=== PATIENT | female | born 1940 | race Caucasian/White ===

== ENCOUNTER 2017-10-18 12:22 | Outpatient (CLI) | payer MEDICARE ==
[2017-10-18 16:20] LABS: Bilirubin Negative (Negative); Blood, Urine Negative (Negative); Clarity CLEAR (Clear); Glucose, Urine (Dipstick) Negative (Negative); Leukocyte Small (Negative); Nitrite Negative (Negative); Protein, Urine (Dipstick) Negative (Neg-Trace); Specific Gravity, Urine 1.006 (1.002-1.036); Urobilinogen 0.2 mg/dL (0.2-1.0)
[2017-10-18 16:24] LABS: Bacteria/HPF None Seen HPF (None Seen); Hyaline Casts/LPF 0-3 HYALINE CAST LPF (0-3 Hyaline); Pathc Cast-AUWi Flag 0.14 (0-2.49); RBC/HPF 0-3 HPF (0-3); Squamous Epithelial None Seen HPF (0-3); WBC/HPF 0-3 HPF (0-3)
== END 2017-10-18 12:23 | disposition home or self-care (01) ==
LOC: LABBT 12:22
PROVIDERS: ATTEND Orthopaedic Surgery
DX: Z01.818 Encounter for other preprocedural examination (principal); M17.11 Unilateral primary osteoarthritis, right knee
CPT/HCPCS: 81001; 87081; 93005; 93010

== ENCOUNTER 2017-10-22 11:15 | Outpatient (CLI) | payer MEDICARE ==
[2017-10-22 12:06] LABS: #Eosinphils 0.1 thou/uL (0.0-0.7); #Lymphocytes 1.5 thou/uL (1.20-3.40); #Monocytes 0.4 thou/uL (0.11-0.59); #Neutrophils 3.2 thou/uL (1.40-6.50); %Basophils 0.7 % (0.0-1.0); %Eosinophils 1.8 % (0.0-10.0); %Lymphocytes 28.6 % (21.0-51.0); %Monocytes 7.8 % (0.0-10.0); %Neutrophils 61.1 % (42.0-75.0); Hemoglobin 12.5 g/dL (12.0-16.0); Mean Corpuscular HGB CONC 33.7 g/dL (32.0-36.0); Mean Corpuscular Hemoglobin 30.8 pg (27.0-31.0); Mean Corpuscular Volume 91.4 fL (78.0-98.0); Mean Platelet Volume 7.6 fL (7.4-10.4); Platelet Count 299 thou/uL (130-400); RBC Distribution Width 11.3 % (11.5-14.5); Red Blood Cell (RBC) Count 4.07 mill/uL (4.20-5.40); White Blood Cell (WBC) Count 5.2 thou/uL (4.8-10.8)
[2017-10-22 12:13] LABS: Prothrombin Time 13.1 SEC (12.0-14.7)
[2017-10-22 12:45] LABS: Anion Gap 12 mmol/L (10-20); BUN (Urea Nitrogen) 15 mg/dL (9.8-20.1); Calc. Creatinine Clearance 0 mL/min (70-130); Calcium 9.3 mg/dL (7.8-10.44); Carbon Dioxide 24 mmol/L (23-31); Chloride 99 mmol/L (98-107); Estimated GFR-MDRD 75; Glucose 102 mg/dL (83-110); Potassium 4.2 mmol/L (3.5-5.1); Sodium 131 mmol/L (136-145)
== END 2017-10-22 11:16 | disposition home or self-care (01) ==
LOC: LABBT 11:15
PROVIDERS: ATTEND Orthopaedic Surgery
DX: Z01.812 Encounter for preprocedural laboratory examination (principal); M17.11 Unilateral primary osteoarthritis, right knee
CPT/HCPCS: 80048; 85025; 85610; 86850; 86900; 86901

== ENCOUNTER 2017-10-29 07:02 | Inpatient (IN) | payer MEDICARE ==
[2017-10-18 12:30] VITALS: BMI 22.6
[2017-10-29] MEDS ORDERED: CEFAZOLIN/Water 2 GM/20 ML SYRINGE ONE (07:19)
[2017-10-29] MEDS ORDERED: Sodium Chloride 0.9% 100 ML ONE (07:19)
[2017-10-29] MEDS ORDERED: Fentanyl 100 MCG/2 ML VIAL ONE ×2 (07:43→11:33)
[2017-10-29] MEDS ORDERED: Midazolam HCl 2 mg/2 ml Vial ONE (07:43)
[2017-10-29] MEDS ORDERED: Bupivacaine PF 0.5% 30 ML VIAL ONE (09:12)
[2017-10-29] MEDS ORDERED: Promethazine HCl 25 MG/ML VIAL IM PRN ×2 (09:31→10:12)
[2017-10-29] MEDS ORDERED: Ondansetron HCl/PF 4 MG/2 ML Vial IVP PRN ×2 (09:31→10:12)
[2017-10-29] MEDS ORDERED: Zolpidem Tartrate 5 MG TAB PO PRN ×2 (09:31→11:13)
[2017-10-29] MEDS ORDERED: Ropivacaine HCl/PF 250 ML in Premix Bag 1 BAG NERVE BLCK SCH (09:31)
[2017-10-29] MEDS ORDERED: HYDROcodone/Acetaminophen 7.5/325 mg Tablet PO PRN ×2 (09:32→09:33)
[2017-10-29] MEDS ORDERED: Promethazine HCl 25 MG/ML VIAL SLOW IVP PRN (10:12)
[2017-10-29] MEDS ORDERED: diphenhydrAMINE 25 MG CAP PO PRN (11:13)
[2017-10-29] MEDS ORDERED: HYDROcodone/Acetaminophen 10/325 mg Tablet PO PRN ×2 (11:13)
[2017-10-29] MEDS ORDERED: Tranexamic Acid 1,000 MG in Sodium Chloride 0.9% 100 ML IVPB SCH (11:15)
--- NOTE | 2017-10-29 11:34 | OP ---
DATE OF PROCEDURE: 10/29/2017 PREOPERATIVE DIAGNOSIS: Right knee osteoarthrosis. POSTOPERATIVE DIAGNOSIS: Right knee osteoarthrosis. PROCEDURE PERFORMED: Right total knee replacement using [place] pinless navigation. SURGEON: Mike Issa M.D. DAIRY ASSOCIATE: Luis Brown PA-C. BLOOD LOSS: Minimal. COMPLICATIONS: None. ANESTHETIC: The patient did have general anesthetic as well as preoperative blocks. IMPLANTS: Our implants that were placed onto the right knee is a [place] [employer] total knee system , the femur was a size 3 cruciate retaining femur. We used a size 3 universal tibial baseplate. We used a 3 x 9 mm CS X3 tibial bearing and a symmetric 27 x 8 X3 patella. DISPOSITION: She did go to recovery room in stable condition. INDICATIONS: A very active 77-year-old female who has finally decided to go and get her knee replace d after failing nonoperative treatment that she has been going with for years. PROCEDURE IN DETAIL: After all appropriate consent forms were explained and signed, the patient was t aken back to the Operating Room and at this time was given general anesthetic. Once the level of anes thesia was appropriate, a well-padded tourniquet was placed on the right leg and the leg was then pre pped and draped in standard surgical fashion. The limb was exsanguinated and tourniquet taken up to 3 00 mmHg. Midline incision was made with a 10 blade down through the skin and subcutaneous tissue. Bov ie electrocautery was used to coagulate any brisk venous bleeding. A new blade was used to make a med ial parapatellar arthrotomy. Small subperiosteal release was performed medially and excess fat pad wa s removed. The knee was flexed up to gain access to the femur. The femur was navigated and distal fem oral resection was made. Epicondylar access was used to align our sizing jig and this was pinned in p lace. We sized our femur to be a [place] total knee system, size 3, cruciate retaining femur, 4:1 cut ting block was applied and pinned. Anterior and posterior chamfer cuts were then made. We navigated o ut our proximal tibia and made our proximal tibial resection. Spreaders were used to remove any poste rior osteophytes off the back of the femur as well as remaining meniscal tissue. A long alignment alva was then used to achieve correct rotation of our tibial baseplate and a size 3 Phenix tibia basep late was chosen. This was pinned in place. We trialed the polyethylene and a 3 x 9 mm CS X3 tibial be aring polyethylene gave us full extension and good stability throughout range of motion. Two towel cl ips and a saw were used to cut our patella. Three lug nuts were drilled and a symmetric 27 x 8 X3 pat phillip was trialed which sat nicely in the trochlear groove. We then drilled our femur and punched our tibia. All components were removed. The knee was thoroughly irrigated and dried. Cement was mixed int o the cement gun on the back table. Components were then placed. The knee was held out in full extens ion until the cement had dried. All excess bone cement was removed. Multiple #2 Vicryl stitches as w ell as a Quill was used to close our extensor mechanism. 0 Quill followed by a running Monoderm was t hen used to close the skin. Surgicel glue was then used on the skin. Once this had dried, soft tissue dressing was applied to the limb, tourniquet was let down, and the toes pinked up nicely. The patie nt was then awakened and taken to the Recovery Room in stable condition. All counts were correct at t he end of the case. The patient did receive preoperative IV antibiotics. The patient was injected wi th Exparel for postoperative pain relief.
[2017-10-29] MEDS: Sodium Chloride 0.9% 1,000 ML IV SCH ×2 (12:01→12:33)
[2017-10-29] MEDS: Ketorolac Tromethamine 30 MG/ML VIAL IVP SCH ×3 (12:32→23:46)
[2017-10-29] MEDS ORDERED: Lidocaine 1% PF 5 ML VIAL ONE (12:59)
[2017-10-29] MEDS ORDERED: Ondansetron HCl/PF 4 MG/2 ML Vial ONE (12:59)
[2017-10-29] MEDS ORDERED: PROPOFOL 200 MG/20 ML VIAL ONE (12:59)
[2017-10-29] MEDS: CEFAZOLIN/Water 2 GM/20 ML SYRINGE SLOW IVP SCH ×2 (15:55→23:47)
[2017-10-29] MEDS ORDERED: Vancomycin HCl 1 GM in Premix Bag 1 BAG IVPB SCH (20:00)
[2017-10-29] MEDS: Aspirin 81 mg Enteric Coated Tablet PO SCH (20:32)
[2017-10-29] MEDS: Atorvastatin Calcium 10 MG TAB PO SCH (20:32)
[2017-10-29] MEDS: Ferrous Gluconate 324 MG TAB PO SCH (20:32)
[2017-10-29] MEDS: Senokot S 8.6-50 MG TAB PO SCH (20:32)
[2017-10-29] MEDS: Zolpidem Tartrate 5 MG TAB PO SCH (20:33)
[2017-10-30 05:15] LABS: Hemoglobin 11.6 g/dL (12.0-16.0); Mean Corpuscular HGB CONC 34.6 g/dL (32.0-36.0); Mean Corpuscular Hemoglobin 31.3 pg (27.0-31.0); Mean Corpuscular Volume 90.3 fL (78.0-98.0); Mean Platelet Volume 7.2 fL (7.4-10.4); Platelet Count 253 thou/uL (130-400); RBC Distribution Width 11.3 % (11.5-14.5); White Blood Cell (WBC) Count 6.3 thou/uL (4.8-10.8)
[2017-10-30] MEDS: Levothyroxine Sodium 100 MCG TAB PO SCH (06:03)
[2017-10-30] MEDS: Ketorolac Tromethamine 30 MG/ML VIAL IVP SCH ×4 (06:03→23:55)
[2017-10-30] MEDS: Sodium Chloride 0.9% 1,000 ML IV SCH ×2 (06:06→18:46)
[2017-10-30] MEDS: Ondansetron HCl/PF 4 MG/2 ML Vial IVP PRN ×3 (07:14→18:08)
[2017-10-30] MEDS: Lactinex Tablet PO SCH (08:47)
[2017-10-30] MEDS: Potassium Chloride 10 MEQ TAB PO SCH (08:48)
[2017-10-30] MEDS: Amlodipine 5 MG TAB PO SCH (08:49)
[2017-10-30] MEDS: Aspirin 81 mg Enteric Coated Tablet PO SCH ×2 (08:49→21:51)
[2017-10-30] MEDS: Senokot S 8.6-50 MG TAB PO SCH ×2 (08:52→21:52)
[2017-10-30] MEDS: Multivitamin W/ Minerals 1 TAB PO SCH (08:52)
[2017-10-30] MEDS: Ferrous Gluconate 324 MG TAB PO SCH ×2 (08:52→21:52)
[2017-10-30] MEDS: Acetaminophen 325 MG TAB PO SCH ×2 (18:47→23:54)
--- NOTE | 2017-10-30 21:00 | CON-2 ---
DATE OF CONSULTATION: 10/30/2017 ATTENDING PHYSICIAN: Hayden Huffman MD REASON FOR CONSULTATION: Medical management. PRIMARY CARE PHYSICIAN: Marya Shah MD HISTORY OF PRESENT ILLNESS: Ms. Chloe Bernal is a pleasant 77-year-old female, who underwent a rig ht total knee replacement yesterday, 10/29/2017, for which we were consulted for medical management. She currently complains of nausea and vomiting and has been unable to tolerate solids today. She st ates that Phenergan suppositories helped. She endorses decreased p.o. intake since her surgery, able to tolerate Sprite and Jell-O. She denies diarrhea, shortness of breath, or chest pain. PAST MEDICAL HISTORY: 1. Hypertension. 2. Acid reflux. 3. Hypothyroidism. 4. Insomnia. 5. Anxiety. 6. Hyperlipidemia. 7. Iron deficient anemia PAST SURGICAL HISTORY: 1. Carpal tunnel surgery. 2. Hysterectomy. 3. Parathyroidectomy. FAMILY HISTORY: Noncontributory. SOCIAL HISTORY: Denies smoking. Endorses occasional alcohol use once a week. Denies drug use. PHYSICAL EXAMINATION: VITAL SIGNS: Temperature 99, pulse 82, respiratory rate 16, O2 sat 98% on room air, and blood pressu re 146/72. GENERAL: No apparent distress, alert and oriented x3. CARDIOVASCULAR: Regular rate and rhythm. No murmurs, rubs, or gallops. RESPIRATORY: Clear to auscultation bilaterally. No wheezing, rhonchi, or rales. EXTREMITIES: No edema. Right knee midline. Incision that is clean, dry, and intact. No rashes or lesions. ABDOMEN: Soft, nondistended, nontender to palpation. Normal bowel sounds. LABORATORY DATA: CBC 6.3, 11.6, 33.4, 253. ASSESSMENT AND PLAN: This is a 77-year-old female with a past medical history of hypertension and ac id reflux status post total right knee replacement postop day #1. Family Medicine residents consulte d for medical management. 1. Right total knee replacement. We will defer to primary team for management. 2. Nausea, vomiting likely associated with lack of p.o. intake and taking pain medications on an emp ty stomach. Provided Zofran p.r.n. Also, recommend advancing diet as tolerated. 3. Hypertension. We will continue amlodipine 10 mg daily. We will also continue benazepril 20 mg d aily. 4. Hyperlipidemia. We will continue atorvastatin 10 mg daily. 5. Iron deficient anemia. We will continue iron 324 mg p.o. b.i.d. 6. Hypothyroidism. We will continue Synthroid 100 mcg daily. 7. Gastroesophageal reflux disease. We will continue pantoprazole 40 mg daily.
[2017-10-30] MEDS: Zolpidem Tartrate 5 MG TAB PO SCH (21:51)
[2017-10-30] MEDS: Atorvastatin Calcium 10 MG TAB PO SCH (21:51)
[2017-10-31] MEDS: Fentanyl 100 MCG/2 ML VIAL IV PRN ×2 (01:13→17:36)
[2017-10-31] MEDS: Sodium Chloride 0.9% 1,000 ML IV SCH ×2 (02:22→13:41)
[2017-10-31 05:13] LABS: Mean Corpuscular HGB CONC 33.7 g/dL (32.0-36.0); Mean Corpuscular Hemoglobin 30.8 pg (27.0-31.0); Mean Corpuscular Volume 91.2 fL (78.0-98.0); Mean Platelet Volume 7.6 fL (7.4-10.4); Platelet Count 240 thou/uL (130-400); RBC Distribution Width 11.4 % (11.5-14.5); Red Blood Cell (RBC) Count 3.58 mill/uL (4.20-5.40); White Blood Cell (WBC) Count 8.5 thou/uL (4.8-10.8)
[2017-10-31] MEDS: Ketorolac Tromethamine 30 MG/ML VIAL IVP SCH (06:09)
[2017-10-31] MEDS: Levothyroxine Sodium 100 MCG TAB PO SCH (06:10)
[2017-10-31] MEDS: Acetaminophen 325 MG TAB PO SCH ×3 (06:10→18:53)
[2017-10-31] MEDS: Ondansetron HCl/PF 4 MG/2 ML Vial IVP PRN (06:10)
[2017-10-31] MEDS: Amlodipine 5 MG TAB PO SCH (08:33)
[2017-10-31] MEDS: Aspirin 81 mg Enteric Coated Tablet PO SCH ×2 (08:34→21:06)
[2017-10-31] MEDS: Ferrous Gluconate 324 MG TAB PO SCH (08:34)
[2017-10-31] MEDS: Senokot S 8.6-50 MG TAB PO SCH ×2 (08:34→21:07)
[2017-10-31] MEDS: Lactinex Tablet PO SCH (08:34)
[2017-10-31] MEDS: Potassium Chloride 10 MEQ TAB PO SCH (08:35)
[2017-10-31] MEDS: Multivitamin W/ Minerals 1 TAB PO SCH (08:35)
[2017-10-31] MEDS: Acetaminophen 325 MG TAB PO PRN ×3 (08:41→21:05)
[2017-10-31] MEDS: Promethazine HCl 25 MG/ML VIAL IM PRN ×2 (10:48→21:01)
--- NOTE | 2017-10-31 10:51 | PDOC.FM ---
- Subjective Subjective: No acute events overnight. Endorses tolerating normal diet this am. Denies nausea and vomiting today. - Objective MAR Reviewed: Yes Vital Signs & Weight: Vital Signs (12 hours) Temp Pulse Resp BP BP Pulse Ox 10/31/17 08:34 152/69 H 10/31/17 08:33 78 152/69 H 10/31/17 08:00 99.6 F 78 14 94 L 10/31/17 07:13 99.6 F 78 14 152/69 H 94 L 10/31/17 03:52 99.1 F 100 18 145/70 H 95 10/30/17 23:59 99.2 F 98 18 176/79 H 95 Weight Admit Weight 56.245 kg Weight 56.245 kg I&O: 10/30/17 10/31/17 11/01/17 06:59 06:59 06:59 Intake Total 780 1680 Output Total 5525 1500 Balance -4745 180 Result Diagrams: 10/31/17 04:28 <Opal Musa - Last Filed: 10/31/17 10:47> - Objective Vital Signs & Weight: Vital Signs (12 hours) Temp Pulse Resp BP BP Pulse Ox 10/31/17 11:00 98 F 81 16 172/73 H 98 10/31/17 08:34 152/69 H 10/31/17 08:33 78 152/69 H 10/31/17 08:00 99.6 F 78 14 94 L 10/31/17 07:13 99.6 F 78 14 152/69 H 94 L Weight Admit Weight 56.245 kg Weight 56.245 kg I&O: 10/30/17 10/31/17 11/01/17 06:59 06:59 06:59 Intake Total 780 1680 Output Total 5525 1500 Balance -4745 180 Result Diagrams: 10/31/17 04:28 <China Villegas - Last Filed: 10/31/17 16:47> Phys Exam - Physical Examination Constitutional: NAD HEENT: PERRLA, moist MMs Neck: no nodes, no JVD Respiratory: no wheezing, no rales, no rhonchi, clear to auscultation bilateral Cardiovascular: RRR, no significant murmur Gastrointestinal: soft, non-tender, no distention Musculoskeletal: no edema, pulses present Neurological: non-focal, normal sensation Psychiatric: normal affect, A&O x 3 Skin: no rash <Opal Musa - Last Filed: 10/31/17 10:47> Dx/Plan (1) Status post total right knee replacement Code(s): Z96.651 - PRESENCE OF RIGHT ARTIFICIAL KNEE JOINT Status: Acute (2) HTN (hypertension) Code(s): I10 - ESSENTIAL (PRIMARY) HYPERTENSION Status: Acute (3) HLD (hyperlipidemia) Code(s): E78.5 - HYPERLIPIDEMIA, UNSPECIFIED Status: Acute (4) GERD (gastroesophageal reflux disease) Code(s): K21.9 - GASTRO-ESOPHAGEAL REFLUX DISEASE WITHOUT ESOPHAGITIS Status: Acute (5) Anxiety Code(s): F41.9 - ANXIETY DISORDER, UNSPECIFIED Status: Acute (6) Insomnia Code(s): G47.00 - INSOMNIA, UNSPECIFIED Status: Acute - Plan Plan: 77 yo s/p right total knee replacement. 1.)Right total knee replacement- -Will defer to primary team 2.)HTN, uncontrolled- -170s overnight, however endorses pain -Will wait to increase dose at pt states she is controlled at home -Amlodipine 10mg daily 3.)HLD, controlled -Continue atorvastatin 10mg daily -lipid profile to evaluate ascvd risk 4.)Insomnia, controlled -Continue ambien as prescribed by primary care doctor 5.)Anxiety, controlled -Continue xanax prn as prescribed by primary care doctor 6.)GERD, controlled -continue pantoprazole Dispo: per pt dc tomorrow to swing bed <Opal Musa - Last Filed: 10/31/17 10:47> Attending Addendum - Attending Addendum Date/Time: 10/31/17 1642 I personally evaluated the patient and discussed the management with Dr. Barraza I agree with the History, Examination, Assessment and Plan documented above with any addition or exceptions noted below. pod #2 s/p R knee replacement HTN- bp elevated yesterday- continue home meds and watch bp Probable d/c to swing bed in [place] tomorrow. <China Villegas - Last Filed: 10/31/17 16:47>
[2017-10-31] MEDS ORDERED: ALPRAZolam 0.25 MG TAB PO PRN (10:57)
[2017-10-31] MEDS: Calcium Carbonate + Vit D 1 TAB PO SCH ×2 (15:27→21:07)
[2017-10-31] MEDS: Atorvastatin Calcium 10 MG TAB PO SCH (21:07)
[2017-10-31] MEDS: Zolpidem Tartrate 5 MG TAB PO SCH (21:07)
[2017-11-01] MEDS: Acetaminophen 325 MG TAB PO SCH ×2 (00:49→05:56)
[2017-11-01] MEDS: Sodium Chloride 0.9% 1,000 ML IV SCH (01:23)
[2017-11-01 05:29] LABS: Hemoglobin 9.6 g/dL (12.0-16.0); Mean Corpuscular HGB CONC 33.6 g/dL (32.0-36.0); Mean Corpuscular Hemoglobin 30.6 pg (27.0-31.0); Mean Corpuscular Volume 91.2 fL (78.0-98.0); Mean Platelet Volume 7.6 fL (7.4-10.4); Platelet Count 231 thou/uL (130-400); RBC Distribution Width 11.2 % (11.5-14.5); Red Blood Cell (RBC) Count 3.14 mill/uL (4.20-5.40)
[2017-11-01 05:35] LABS: Cardiac Risk 2.4 (Less than 4.5)
[2017-11-01] MEDS: Levothyroxine Sodium 100 MCG TAB PO SCH (06:41)
--- NOTE | 2017-11-01 07:50 | PDOC.FM ---
- Subjective Subjective: No acute events overnight. Denies n/v this morning. No complaints today. - Objective MAR Reviewed: Yes Vital Signs & Weight: Vital Signs (12 hours) Temp Pulse Resp BP Pulse Ox 11/01/17 05:16 98.5 F 75 17 145/76 H 94 L 11/01/17 01:13 99 F 77 12 144/61 H 95 10/31/17 21:14 99.3 F 75 18 153/62 H 98 10/31/17 20:00 99.3 F 75 18 94 L Weight Admit Weight 56.245 kg Weight 56.245 kg I&O: 10/31/17 11/01/17 11/02/17 06:59 06:59 06:59 Intake Total 1680 Output Total 1500 Balance 180 Result Diagrams: 11/01/17 04:32 <Opal Musa - Last Filed: 11/01/17 13:32> - Objective Vital Signs & Weight: Vital Signs (12 hours) Temp Pulse Resp BP BP BP Pulse Ox 11/01/17 13:18 98.9 F 76 16 151/71 H 95 11/01/17 09:10 98.0 F 80 16 159/71 H 94 L 11/01/17 09:02 75 145/62 H 11/01/17 09:01 145/62 H 11/01/17 08:00 98.0 F 80 16 94 L 11/01/17 05:16 98.5 F 75 17 145/76 H 94 L Weight Admit Weight 56.245 kg Weight 56.245 kg I&O: 10/31/17 11/01/17 11/02/17 06:59 06:59 06:59 Intake Total 1680 Output Total 1500 Balance 180 Result Diagrams: 11/01/17 04:32 <China Villegas - Last Filed: 11/01/17 13:54> Phys Exam - Physical Examination Constitutional: NAD Respiratory: no wheezing, no rales, clear to auscultation bilateral Cardiovascular: RRR, no significant murmur Gastrointestinal: soft, non-tender, no distention, positive bowel sounds Musculoskeletal: no edema, pulses present Psychiatric: normal affect, A&O x 3 Skin: no rash, normal turgor, cap refill <2 seconds <Opal Musa - Last Filed: 11/01/17 13:32> Dx/Plan (1) Status post total right knee replacement Code(s): Z96.651 - PRESENCE OF RIGHT ARTIFICIAL KNEE JOINT Status: Acute (2) HTN (hypertension) Code(s): I10 - ESSENTIAL (PRIMARY) HYPERTENSION Status: Acute (3) HLD (hyperlipidemia) Code(s): E78.5 - HYPERLIPIDEMIA, UNSPECIFIED Status: Acute (4) GERD (gastroesophageal reflux disease) Code(s): K21.9 - GASTRO-ESOPHAGEAL REFLUX DISEASE WITHOUT ESOPHAGITIS Status: Acute (5) Anxiety Code(s): F41.9 - ANXIETY DISORDER, UNSPECIFIED Status: Acute (6) Insomnia Code(s): G47.00 - INSOMNIA, UNSPECIFIED Status: Acute - Plan Plan: 77 yo s/p right total knee replacement. 1.)Right total knee replacement- -Will defer to primary team 2.)HTN, uncontrolled- -140-150s overnight -Amlodipine 10mg daily 3.)HLD, controlled -ascvd risk >10% -started on 40mg atorvastatin 4.)Insomnia, controlled -Continue ambien as prescribed by primary care doctor 5.)Anxiety, controlled -Continue xanax prn as prescribed by primary care doctor 6.)GERD, controlled -continue pantoprazole Dispo: per pt dc tomorrow to swing bed <Opal Musa - Last Filed: 11/01/17 13:32> Attending Addendum - Attending Addendum Date/Time: 11/01/17 [id number] I personally evaluated the patient and discussed the management with Dr. Barraza I agree with the History, Examination, Assessment and Plan documented above with any addition or exceptions noted below. Patient is stable for swing bed transfer to continue PT. BP at goal on current therapy. <China Villegas - Last Filed: 11/01/17 13:54>
[2017-11-01] MEDS: Promethazine HCl 25 MG/ML VIAL IM PRN ×2 (07:51→12:15)
[2017-11-01] MEDS ORDERED: Aspirin 81 mg Enteric Coated Tablet PO SCH (09:00)
[2017-11-01] MEDS: Acetaminophen 325 MG TAB PO PRN ×2 (09:01→12:58)
[2017-11-01] MEDS: Senokot S 8.6-50 MG TAB PO SCH (09:02)
[2017-11-01] MEDS: Lactinex Tablet PO SCH (09:02)
[2017-11-01] MEDS: Amlodipine 5 MG TAB PO SCH (09:02)
[2017-11-01] MEDS: Aspirin 81 mg Enteric Coated Tablet PO SCH (09:03)
[2017-11-01] MEDS: Calcium Carbonate + Vit D 1 TAB PO SCH (09:03)
[2017-11-01] MEDS: Multivitamin W/ Minerals 1 TAB PO SCH (09:03)
[2017-11-01] MEDS: Potassium Chloride 10 MEQ TAB PO SCH (09:04)
[2017-11-01 13:19] VITALS: BP 151/71; TEMP 98.9
[2017-11-01] MEDS ORDERED: Atorvastatin Calcium 40 MG TAB PO SCH (21:00)
== END 2017-11-01 14:04 | DRG 470 ==
LOC: SDC 07:02 → SJJU 11:13 → SDC 15:50
PROVIDERS: ADMIT Orthopaedic Surgery; ATTEND Orthopaedic Surgery
PROC: 0SRC0J9 Replacement of Right Knee Joint with Synthetic Substitute, Cemented, Open Approach (ICD-10-PCS; principal; 2017-10-29)
DX: M17.11 Unilateral primary osteoarthritis, right knee (principal); I10 Essential (primary) hypertension; K21.9 Gastro-esophageal reflux disease without esophagitis; E03.9 Hypothyroidism, unspecified; G47.00 Insomnia, unspecified; F41.9 Anxiety disorder, unspecified; E78.5 Hyperlipidemia, unspecified; D50.9 Iron deficiency anemia, unspecified; R11.2 Nausea with vomiting, unspecified; Z88.5 Allergy status to narcotic agent; Z88.2 Allergy status to sulfonamides; Z88.8 Allergy status to other drugs, medicaments and biological substances; Z79.82 Long term (current) use of aspirin; Z79.899 Other long term (current) drug therapy
CPT/HCPCS: 36415; 80061; 85027; 96374; C1713; C1776; G8978-GP-CL; G8979-GP-CJ; J1885; J2001; J2250; J2405; J2550; J2704; J2795; J3010; J3370; J7050; S0020

== ENCOUNTER 2017-12-20 15:30 | Inpatient (IN) | payer MEDICARE ==
[2017-12-20] MEDS ORDERED: Ondansetron HCl/PF 4 MG/2 ML Vial ONE ×2 (16:02→16:18)
[2017-12-20 16:03] LABS: Bilirubin Negative (Negative); Blood, Urine Trace (Negative); Clarity Clear (Clear); Glucose, Urine (Dipstick) Negative (Negative); Leukocyte Small (Negative); Nitrite Negative (Negative); Protein, Urine (Dipstick) Negative (Neg-Trace); Specific Gravity, Urine 1.015 (1.005-1.030); Urobilinogen 0.2 mg/dL (0.2-1.0); pH, Urine 7.5 (5.0-9.0)
[2017-12-20 16:10] LABS: Bacteria/HPF Rare-Few HPF (None Seen); Squamous Epithelial 0-3 HPF (0-3)
[2017-12-20 16:16] LABS: Band 3 % (5-11); Eosinophils 2 % (0-10); Hemoglobin 12.8 g/dL (12.0-16.0); Lymphocytes 25 % (21-51); MDiff Complete? YES; Mean Corpuscular HGB CONC 33.9 g/dL (32.0-36.0); Mean Corpuscular Hemoglobin 29.4 pg (27.0-31.0); Mean Corpuscular Volume 86.6 fL (78.0-98.0); Monocytes 4 % (0-10); Neutrophil 61 % (42-75); PLT Morphology Comment Appears Adequate; Platelet Count 339 thou/uL (130-400); RBC Distribution Width 11.1 % (11.5-14.5); Reactive Lymphocytes 4 % (0-10); Red Blood Cell (RBC) Count 4.34 mill/uL (4.20-5.40); White Blood Cell (WBC) Count 6.4 thou/uL (4.8-10.8)
[2017-12-20 16:22] LABS: ALT (SGPT) 12 U/L (8-55); AST (SGOT) 15 U/L (5-34); Albumin 4.6 g/dL (3.4-4.8); Alkaline Phosphatase 76 U/L (40-150); Anion Gap 16 mmol/L (10-20); BUN (Urea Nitrogen) 7 mg/dL (9.8-20.1); Bilirubin, Total 0.6 mg/dL (0.2-1.2); CK (CPK) 60 U/L (29-168); CKMB 1.1 ng/mL (0-6.6); Calc. Creatinine Clearance 0 mL/min (70-130); Calcium 9.4 mg/dL (7.8-10.44); Carbon Dioxide 22 mmol/L (23-31); Chloride 87 mmol/L (98-107); Estimated GFR-MDRD 84; Globulin 2.5 g/dL (2.4-3.5); Glucose 101 mg/dL (83-110); Lipase 28 U/L (8-78); Potassium 4.2 mmol/L (3.5-5.1); Protein, Total 7.1 g/dL (6.0-8.3); Sodium 121 mmol/L (136-145)
--- NOTE | 2017-12-20 16:34 | CT ---
CT HEAD WITHOUT CONTRAST: Date: 12/20/17 Multiple axial tomograms obtained through the head without IV enhancement. INDICATION: Headache. FINDINGS: Ventricles have normal size and position. There is no evidence of intracranial mass, hemorrhage or in farct. Sinuses and mastoids are clear. IMPRESSION: No acute findings. POS: [facility]
[2017-12-20 19:11] VITALS: BMI 22.2
[2017-12-20] MEDS: Sodium Chloride 0.9% 1,000 ML IV SCH (19:40)
--- NOTE | 2017-12-20 19:59 | PDOC.FPRHP ---
- History of Present Illness Chief Complaint: Nausea, vomiting, [facility] History of Present Illness: Ms Bernal is a 77yo female with pmh of hypothyrodism, HTN, HLD, GERD, recurrent UTIs who presented to the [facility] ED for persistent nausea over the last 8 wks and [facility] and found to be hyponatremic at 121 and was a direct transfer here. She reports nausea started at last hospital admission due to pain medication after her surgery that she said has never resolved. She has been taking zofran, phenergan and omeprazole at home for nausea and acid reflux. Pt reports hx of chronic hyponatremia but last know was 128. Also reports dysuria and frequency the last few days, she has hx of recurrent UTIs. - Allergies/Adverse Reactions Allergies Allergy/AdvReac Type Severity Reaction Status Date / Time Sulfa (Sulfonamide Allergy Severe lips swell Verified 12/20/17 19:48 Antibiotics) buspirone HCl [From BuSpar] Allergy Mild hallucinati Verified 12/20/17 19:48 on tramadol HCl [From Ultram] Allergy hallucinati Verified 12/20/17 19:48 ons - Home Medications Medication Instructions Recorded Confirmed Type ALPRAZolam 0.25 mg PO ASDIR 07/15/15 12/20/17 History Amlodipine Besylate [amLODIPine 10 mg PO QAM 07/15/15 12/20/17 History Besylate] Benazepril HCl [Lotensin] 20 mg PO DAILY 07/15/15 12/20/17 History Calcium Carbonate + Vit D 1 tab PO TID 07/15/15 12/20/17 History [Caltrate 600 + Vit D] Levothyroxine Sodium 100 mcg PO DAILY 07/15/15 12/20/17 History Omeprazole 40 mg PO DAILY 07/15/15 12/20/17 History Zolpidem Tartrate [Ambien] 10 mg PO HS 07/15/15 12/20/17 History Lactobacillus Acidophilus 1 capsule PO DAILY 10/18/17 12/20/17 History [Probiotic] Multivitamin W/ Minerals 1 tab PO DAILY tab 11/01/17 12/20/17 Rx [Theragran M] Aspirin [Ecotrin Low Strength] 81 mg PO DAILY 12/20/17 12/20/17 History Atorvastatin Calcium [Lipitor] 10 mg PO HS 12/20/17 12/20/17 History Ondansetron HCl [Zofran] 4 mg PO PRN PRN 12/20/17 12/20/17 History - History PMHx: HTN, HLD, Hypothyroidism, recurrent UTIs, GERD PSHx: Parathyroidectomy, hysterectomy, total right knee replacement FHx: Mother and siblings: HTN Social: Denies tobacco, alcohol or drug use. - Review of Systems General: reports: weight/appetite/sleep changes (insomnia). denies: fever/ chills Eyes: denies: eye pain, vision changes ENT: denies: nasal congestion, rhinorrhea Respiratory: denies: cough, congestion, shortness of breath Cardiovascular: denies: chest pain, palpitation, edema Gastrointestinal: reports: nausea. denies: vomiting, diarrhea, constipation, abdominal pain Genitourinary: reports: dysuria, other (frequency) Skin: denies: rashes, lesions Musculoskeletal: denies: pain, swelling Neurological: denies: numbness, weakness Psychological: reports: anxiety - Vital signs BP: 183/81 HR: 77 RR: 19 Tmax: 99.3 Pox: 98% on RA Wt: 55.2kg - Physical Exam Constitutional: NAD, awake, alert and oriented, well developed HEENT: normocephalic and atraumatic, grossly normal hearing, normal nasal mucosa , oropharynx clear, other (slightly dry MM) Neck: supple, trachea midline Heart: RRR, normal S1/S2, pulses present, no edema Lungs: CTAB, no respiratory distress, no wheezing Abdomen: soft, non-tender, bowel sounds present Musculoskeletal: normal structure, normal tone Neurological: no focal deficit Skin: capillary refill <2 seconds Psychiatric: normal mood and affect, good judgment and insight, intact recent and remote memory FMR H&P: Results - Labs Result Diagrams: 12/20/17 15:55 12/20/17 21:08 Lab results: WBC 6.4 thou/uL (4.8-10.8) 12/20/17 15:55 Hgb 12.8 g/dL (12.0-16.0) 12/20/17 15:55 Hct 37.6 % (36.0-47.0) 12/20/17 15:55 MCV 86.6 fL (78.0-98.0) 12/20/17 15:55 Plt Count 339 thou/uL (130-400) 12/20/17 15:55 Band Neuts % (Manual) 3 % (5-11) L 12/20/17 15:55 Sodium 121 mmol/L (136-145) L 12/20/17 15:55 Potassium 4.2 mmol/L (3.5-5.1) 12/20/17 15:55 Chloride 87 mmol/L (98-107) L 12/20/17 15:55 Carbon Dioxide 22 mmol/L (23-31) L 12/20/17 15:55 BUN 7 mg/dL (9.8-20.1) L 12/20/17 15:55 Creatinine 0.68 mg/dL (0.6-1.1) 12/20/17 15:55 Glucose 101 mg/dL (83-110) 12/20/17 15:55 Calcium 9.4 mg/dL (7.8-10.44) 12/20/17 15:55 Total Bilirubin 0.6 mg/dL (0.2-1.2) 12/20/17 15:55 AST 15 U/L (5-34) 12/20/17 15:55 ALT 12 U/L (8-55) 12/20/17 15:55 Alkaline Phosphatase 76 U/L (40-150) 12/20/17 15:55 Creatine Kinase 60 U/L (29-168) 12/20/17 15:55 CK-MB (CK-2) 1.1 ng/mL (0-6.6) 12/20/17 15:55 Serum Total Protein 7.1 g/dL (6.0-8.3) 12/20/17 15:55 Albumin 4.6 g/dL (3.4-4.8) 12/20/17 15:55 Lipase 28 U/L (8-78) 12/20/17 15:55 Urine Ketones Negative mg/dL (Negative) 12/20/17 15:55 Urine Blood Trace (Negative) H 12/20/17 15:55 Urine Nitrite Negative (Negative) 12/20/17 15:55 Ur Leukocyte Esterase Small (Negative) H 12/20/17 15:55 Urine RBC 4-6 HPF (0-3) 12/20/17 15:55 Urine WBC 4-6 HPF (0-3) H 12/20/17 15:55 Ur Squamous Epith Cells 0-3 HPF (0-3) 12/20/17 15:55 Urine Bacteria Rare-Few HPF (None Seen) 12/20/17 15:55 - EKG Interpretation EKG: NSR FMR H&P: A/P - Problem List (1) Hyponatremia Current Visit: Yes Status: Acute Code(s): E87.1 - HYPO-OSMOLALITY AND HYPONATREMIA (2) UTI (urinary tract infection) Current Visit: Yes Status: Acute (3) Anxiety Current Visit: No Status: Acute Code(s): F41.9 - ANXIETY DISORDER, UNSPECIFIED (4) GERD (gastroesophageal reflux disease) Current Visit: No Status: Acute Code(s): K21.9 - GASTRO-ESOPHAGEAL REFLUX DISEASE WITHOUT ESOPHAGITIS (5) HLD (hyperlipidemia) Current Visit: No Status: Acute Code(s): E78.5 - HYPERLIPIDEMIA, UNSPECIFIED (6) HTN (hypertension) Current Visit: No Status: Acute Code(s): I10 - ESSENTIAL (PRIMARY) HYPERTENSION (7) Insomnia Current Visit: No Status: Acute Code(s): G47.00 - INSOMNIA, UNSPECIFIED (8) Status post total right knee replacement Current Visit: No Status: Acute Code(s): Z96.651 - PRESENCE OF RIGHT ARTIFICIAL KNEE JOINT (9) Recurrent UTI Current Visit: Yes Status: Acute Code(s): N39.0 - URINARY TRACT INFECTION, SITE NOT SPECIFIED - Plan Acute on Chronic Hyponatremia - 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 vs glucocorticoid def vs severe hypothyroidism vs drug induced - Serum osm: 252, Urine osm: 240, Urine Na: 70 - TSH very low at 0.0750 - Will obtain AM cortisol to rule out glucocorticoid def - Will consider Amlodipine and benzapril as cause of drug induced hyponatremia - Stop Benzapril and monitor BP with addition of PRN hydralazine Intractable nausea - Possibly due to gastritis - Zofran PRN, Phenergan PRN - Will try GI cocktail UTI - Hx of recurrent UTIs - Most recent Urine cxs grew Beta-hemolytic strep & E coli resistant to Cipro & levaquin - Will treat with Ceftriaxone - Urine Cx pending HTN - Continue home Amlodipine - Will stop Benzopril - Hydrazine PRN for SBP >180 DBP >110 HLD - Continue home Atorvastatin Hypothyroidism - TSH very low 0.075 - Pt is likely symptomatic with reported anxiety and insomnia - Will reduce home dose levothyroxine from 100mcg to 50mcg GERD - GI cocktail as above - Continue home omeprazole Anxiety - Continue home meds Insomnia - Continue home meds Code Status: DNR DVT ppx: Lovenox FMR H&P: Upper Level - Pertinent history 77 y/o F w/ PMHx of chronic hyponatremia presents as a direct admit [place] [facility] after presenting for evaluation of persistent nausea and abdominal discomfort over the past 8 weeks. She was found to have an exacerbation of her hyponatremia down to 121. Pt reports that she has been taking Nexium at home and alternating Zofran and Phenergan to control her nausea. She notes that she will have episodes where her nausea is gone, but it returns w/o any enticing evets. Also reports sxs of dysuria/frequency over the past few days. Denies any fever/chills. Reports hx of multiple UTIs in the past w/ similar sxs. - Pertinent findings Vital signs reviewed and noted to be as above in corporate legal intern H&P WBC 6.4 Hgb 12.8 Neut 61% Na 121 Potassium 4.2 Cl 87 CO2 22 Serum Osm 252 Urine Osm 240 Urine Na 70 TSH 0.0750 U/A Small blood, positive nitrite, small LE, 4-6 WBC, 1+ bacteria Brain CT NAD per outside ER records GEN: NAD HEENT: Normocephalic, atraumatic. Mildly dry MM CARDS: RRR, no mumurs, rubs or gallops. PULM: CTA-B/l GI: Soft, non-ttp, no rebound tenderness, no rigidity, no guarding EXT: Moves all 4 ext. No peripheral edema - Plan Date/Time: 12/20/171958 Mirian Pizarro MD, have evaluated this patient and agree with findings/plan as outlined by corporate legal intern resident. Pertinent changes/additions are listed here. 77 y/o F w/: 1) Acute on Chronic Hypotonic Hyponatremia likely hypovolemic vs SIADH vs Drug Induced - Pt w/ chronic hyponatremia (133-126 from 09/25 to 12/13) w/ new ramírez to 121 today - Serum osm <280 pointing to hypotonic hyponatremia and urine osm >100 and urine sodium >40 - Will check TSH and AM cortisol to eval for underlying eitiology - No improvement of sodium on repeat labs. Only on fluids since getting to [facility]. Will continue w/ trial of IVF for possible hypovolemic hyponatremia. If labs pointing toward SIADH will discontinue this and fluid restrict. - Repeat BMP q6 hr for re-eval with goal change 4-6 mEq/day - Pt also on Benazapril which could also cause her hyponatremia. However, she has been on this medication for quite some time w/o any effects on her sodium previously - We will hold her TALI-I and cont. w/ Norvasc 10 mg. Monitor BP and add medications as needing 2) Intractable Nausea possibly 2/2 gastritis vs medication induced - Will start on protonix and give GI cocktail - No obvious source on review of med list - If sxs do not improve will consider GI consult for possible EGD for further evaluation 3) Uncomplicated UTI - Prior UTI 2/2 E. coli resistant to fluroquinolones. - Obtain UCx and start on IV Rocephin 1 gram q 24 hrs 4) HTN - Per above, cont. w/ Norvasc. Hold TALI-I 5) Hypothyroidism - Repeat TSH low at 0.075 - Dec. synthroid from 100 mcg to 50 mcg - #2 possibly due to iatrogenic hyperthyroidism 6) Insomnia - Cont. w/ home meds CODE STATUS: DNR. Patient expressed understanding of DNR status and noted she did not want any resuscitative measures such as chest compression, defibrillation, or endotracheal intubation to be performed in the event of cardiopulmonary arrest LOS: >2 midnights Diet: Regular Assessment and Plan discussed w/ Attending Dr. Devonte Fermin who is in agreement Attending Addendum - Attending Addendum Date/Time: 12/20/172229 I personally evaluated the patient and discussed the management with Dr. Slade /Agnes. I agree with the History, Examination, Assessment and Plan documented above with any addition or exceptions noted below.
[2017-12-20 20:06] LABS: Osmolality, Urine 240 mOsm/kg (300-900)
[2017-12-20 20:11] LABS: Sodium, Urine 70 mmol/L (Not Available)
[2017-12-20 21:33] LABS: Anion Gap 12 mmol/L (10-20); BUN (Urea Nitrogen) 6 mg/dL (9.8-20.1); Calc. Creatinine Clearance 60 mL/min (70-130); Calcium 8.9 mg/dL (7.8-10.44); Carbon Dioxide 22 mmol/L (23-31); Chloride 90 mmol/L (98-107); Estimated GFR-MDRD 84; Glucose 141 mg/dL (83-110); Potassium 3.4 mmol/L (3.5-5.1); Sodium 121 mmol/L (136-145)
[2017-12-20] MEDS ORDERED: Ondansetron HCl/PF 4 MG/2 ML Vial IVP PRN (22:22)
[2017-12-20] MEDS ORDERED: Ondansetron ODT 4 MG TAB SL PRN (22:22)
[2017-12-20] MEDS ORDERED: Lidocaine 2% Viscous Solution 10 ML, Aluminum & Magnesium Hydroxide 30 ML SSW SCH (22:30)
[2017-12-20] MEDS ORDERED: ALPRAZolam 0.25 MG TAB PO SCH (22:30)
[2017-12-20] MEDS ORDERED: hydrALAZINE 20 MG/ML VIAL SLOW IVP PRN (22:31)
[2017-12-20] MEDS ORDERED: Zolpidem Tartrate 5 MG TAB PO SCH (23:30)
[2017-12-20] MEDS: cefTRIAXone\\ROCEPHIN 1 GM in Sodium Chloride 0.9% 100 ML IVPB SCH (23:34)
[2017-12-20] MEDS: Zolpidem Tartrate 5 MG TAB PO SCH (23:34)
[2017-12-21] MEDS ORDERED: Ondansetron HCl/PF 4 MG/2 ML Vial ONE (05:19)
[2017-12-21] MEDS ORDERED: Levothyroxine Sodium 100 MCG TAB PO SCH (06:00)
[2017-12-21] MEDS ORDERED: Levothyroxine Sodium 75 MCG TAB PO SCH (06:00)
[2017-12-21] MEDS ORDERED: Lorazepam 0.5 MG TAB ONE (08:45)
[2017-12-21] MEDS ORDERED: Lorazepam 0.5 MG TAB PO PRN (11:42)
[2017-12-21] MEDS ORDERED: Acetaminophen 325 MG TAB PO PRN (12:28)
[2017-12-21 12:50] LABS: Anion Gap 12 mmol/L (10-20); BUN (Urea Nitrogen) 4 mg/dL (9.8-20.1); Calc. Creatinine Clearance 60 mL/min (70-130); Calcium 8.8 mg/dL (7.8-10.44); Carbon Dioxide 22 mmol/L (23-31); Chloride 94 mmol/L (98-107); Estimated GFR-MDRD 82; Glucose 121 mg/dL (83-110); Potassium 3.5 mmol/L (3.5-5.1)
[2017-12-21] MEDS: Enoxaparin Sodium 40 MG/0.4 ML SYRINGE SC SCH (13:01)
[2017-12-21] MEDS: Promethazine HCl 12.5 MG SUPP PR PRN ×2 (13:02→20:47)
--- NOTE | 2017-12-21 14:40 | PDOC.EVN ---
Event Note - Event Note Event Note: Patient hyponatremia is improving, her baseline is 126-130 suspecting SIADH AM cortisol pending Stopped benazepril stopped fluids, fluid restriction to 2000cc PT/OT consulted [facility] for nausea
[2017-12-21 15:19] LABS: Sodium 124 mmol/L (136-145)
[2017-12-21] MEDS: Sodium Chloride 0.9% 1,000 ML IV SCH (16:54)
[2017-12-21] MEDS: Levothyroxine Sodium 50 MCG TAB PO SCH (16:55)
[2017-12-21] MEDS: Amlodipine 10 MG TAB PO SCH (16:55)
[2017-12-21] MEDS: Calcium Carbonate + Vit D 1 TAB PO SCH ×3 (16:56→20:47)
[2017-12-21] MEDS: Lactinex Tablet PO SCH (16:56)
[2017-12-21] MEDS: Multivitamin W/ Minerals 1 TAB PO SCH (16:56)
[2017-12-21] MEDS: Aspirin 81 mg Enteric Coated Tablet PO SCH (16:56)
[2017-12-21] MEDS: Ondansetron ODT 4 MG TAB PO PRN (17:27)
[2017-12-21] MEDS: Zolpidem Tartrate 5 MG TAB PO SCH (20:47)
[2017-12-21] MEDS: cefTRIAXone\\ROCEPHIN 1 GM in Sodium Chloride 0.9% 100 ML IVPB SCH (20:50)
[2017-12-21] MEDS ORDERED: Atorvastatin Calcium 10 MG TAB PO SCH (21:00)
[2017-12-22] MEDS: Levothyroxine Sodium 50 MCG TAB PO SCH (05:26)
[2017-12-22 05:44] LABS: Anion Gap 12 mmol/L (10-20); BUN (Urea Nitrogen) 8 mg/dL (9.8-20.1); Calc. Creatinine Clearance 55 mL/min (70-130); Calcium 9.2 mg/dL (7.8-10.44); Carbon Dioxide 26 mmol/L (23-31); Chloride 93 mmol/L (98-107); Estimated GFR-MDRD 77; Glucose 100 mg/dL (83-110); Potassium 3.7 mmol/L (3.5-5.1); Sodium 127 mmol/L (136-145)
--- NOTE | 2017-12-22 06:27 | PDOC.FM ---
- Subjective Subjective: Ms. Bernal is feeling much improved today, she denies any urinary symptoms, confusion or headache. She would like to go home today. - Objective Vital Signs & Weight: Vital Signs (12 hours) Temp Pulse Resp BP Pulse Ox 12/22/17 03:16 98.9 F 72 16 142/65 H 96 12/22/17 00:00 78 112/57 L 12/21/17 19:57 97 12/21/17 19:55 98.4 F 88 20 153/72 H 97 Weight Admit Weight 55.202 kg Weight 53.615 kg I&O: 12/20/17 12/21/17 12/22/17 06:59 06:59 06:59 Intake Total 350 Output Total 250 Balance 100 Result Diagrams: 12/20/17 15:55 12/22/17 04:24 <Tad Del Rio - Last Filed: 12/22/17 09:20> - Objective Vital Signs & Weight: Vital Signs (12 hours) Temp Pulse Resp BP BP BP Pulse Ox 12/22/17 12:00 99 F 104 H 18 145/75 H 97 12/22/17 10:04 72 167/75 H 12/22/17 08:00 98.5 F 87 18 167/75 H 98 12/22/17 03:16 98.9 F 72 16 142/65 H 96 Weight Admit Weight 55.202 kg Weight 53.615 kg I&O: 12/21/17 12/22/17 12/23/17 06:59 06:59 06:59 Intake Total 350 Output Total 250 Balance 100 Result Diagrams: 12/20/17 15:55 12/22/17 04:24 <Nighat Dai - Last Filed: 12/22/17 12:54> Phys Exam - Physical Examination Constitutional: NAD HEENT: moist MMs Neck: no nodes Respiratory: no wheezing, no rales, no rhonchi, clear to auscultation bilateral Cardiovascular: RRR, no significant murmur, no rub Gastrointestinal: soft, non-tender, no distention Musculoskeletal: no edema, pulses present Neurological: non-focal, moves all 4 limbs Psychiatric: normal affect Skin: no rash <Tad Del Rio - Last Filed: 12/22/17 09:20> Dx/Plan (1) Hyponatremia Code(s): E87.1 - HYPO-OSMOLALITY AND HYPONATREMIA Status: Acute (2) UTI (urinary tract infection) Status: Acute (3) Anxiety Code(s): F41.9 - ANXIETY DISORDER, UNSPECIFIED Status: Acute (4) GERD (gastroesophageal reflux disease) Code(s): K21.9 - GASTRO-ESOPHAGEAL REFLUX DISEASE WITHOUT ESOPHAGITIS Status: Acute (5) HLD (hyperlipidemia) Code(s): E78.5 - HYPERLIPIDEMIA, UNSPECIFIED Status: Acute (6) HTN (hypertension) Code(s): I10 - ESSENTIAL (PRIMARY) HYPERTENSION Status: Acute (7) Status post total right knee replacement Code(s): Z96.651 - PRESENCE OF RIGHT ARTIFICIAL KNEE JOINT Status: Acute - Plan Plan: Acute on Chronic Hyponatremia - 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 vs glucocorticoid def vs severe hypothyroidism vs drug induced - Serum osm: 252, Urine osm: 240, Urine Na: 70 - TSH very low at 0.0750 - AM cortisol WNL - Will consider Amlodipine and benzapril as cause of drug induced hyponatremia - Stop Benzapril and monitor BP with addition of PRN hydralazine Intractable nausea - Possibly due to gastritis - Zofran PRN, Phenergan PRN UTI - Hx of recurrent UTIs - Most recent Urine cxs grew Beta-hemolytic strep & E coli resistant to Cipro & levaquin - Will treat with Ceftriaxone - Urine Cx pending HTN - Continue home Amlodipine - hold Benzopril - Hydrazine PRN for SBP >180 DBP >110 HLD - Continue home Atorvastatin Hypothyroidism - TSH very low 0.075 - Pt is likely symptomatic with reported anxiety and insomnia - Reduce home dose levothyroxine from 100mcg to 50mcg GERD - GI cocktail as above - Continue home omeprazole Anxiety - Continue home meds Insomnia - Continue home meds Code Status: DNR DVT ppx: Lovenox <Tad Del Rio - Last Filed: 12/22/17 09:20> Attending Addendum - Attending Addendum Date/Time: 12/22/17 [id number] I personally evaluated the patient and discussed the management with Dr. Del Rio I agree with the History, Examination, Assessment and Plan documented above with any addition or exceptions noted below- Patient without complaints. Feeling much better and would like to go home. Afebrile VSS. A/P: 1) Hyponatremia- improved. Continue to monitor and hold benazapril. 2) UTI- continue rocephin; culture pending. If available later today will plan to discharge. <Nighat Dai - Last Filed: 12/22/17 12:54>
[2017-12-22] MEDS: Ondansetron ODT 4 MG TAB PO PRN (09:41)
[2017-12-22] MEDS: Aspirin 81 mg Enteric Coated Tablet PO SCH (09:41)
[2017-12-22] MEDS: Calcium Carbonate + Vit D 1 TAB PO SCH ×2 (09:41→17:16)
[2017-12-22] MEDS: Multivitamin W/ Minerals 1 TAB PO SCH (09:42)
[2017-12-22] MEDS: Enoxaparin Sodium 40 MG/0.4 ML SYRINGE SC SCH (09:43)
[2017-12-22] MEDS: Amlodipine 10 MG TAB PO SCH (10:04)
[2017-12-22] MEDS: Lactinex Tablet PO SCH (12:08)
[2017-12-22 17:16] VITALS: BP 136/71; TEMP 98.9
--- NOTE | 2017-12-23 18:25 | DIS-2 ---
DATE OF ADMISSION: 12/20/2017 DATE OF DISCHARGE: 12/22/2017 ATTENDING PROVIDER: Devonte Fermin MD DISCHARGING PROVIDER: Nighat Dai M.D. RESIDENT: Tad Del Rio DO CONSULTATIONS: Occupational therapy. PROCEDURES: Brain CT. Impression, no acute findings. PRIMARY DIAGNOSIS: Acute on chronic hyponatremia. SECONDARY DIAGNOSES: 1. Intractable nausea. 2. Urinary tract infection. 3. Hypertension. 4. Hyperlipidemia. 5. Hypothyroidism. 6. GERD. 7. Anxiety. 8. Insomnia. DISCHARGE MEDICATIONS: Alprazolam 0.25 mg p.o. as directed, calcium carbonate plus vitamin D one tab p.o. t.i.d., Ambien 10 mg p.o. at bedtime, omeprazole 40 mg p.o. daily, levothyroxine 50 mg p.o. daily, amlodipine 10 mg p.o. q.a.m., probiotic 1 capsule p.o. daily, multivitamins with minerals 1 tab p.o. daily, Zofran 4 mg p.o. p.r.n., aspirin 81 mg p.o. daily, atorvastatin, calcium 10 mg p.o. at bedtime. DISCONTINUED MEDICATIONS: Levothyroxine 100 mcg p.o. daily and benazepril HCL 20 mg p.o. daily. HOSPITAL COURSE: Ms. Bernal presented to the emergency department with persistent nausea and vomiting over the last 8 weeks and found to be hyponatremic with sodium of 121. She reported a history of hyponatremia, but last known sodium was 128. She reported as well dysuria and urinary frequency over the last few days with history of recurrent urinary tract infections. During her hospital course, she was treated for UTIs with antibiotics and her sodium was monitored with fluid restrictions and encouraging p.o. intake. Antiemetics were administered and her nausea improved. Urinary symptoms improved as well. She was discharged in stable condition to home. DISCHARGE INSTRUCTIONS: 1. Location: Home. 2. Diet: Regular. 3. Activity: As tolerated. 4. Follow up with PCP, Dr. Villatoro in 7 days. [facility]
== END 2017-12-22 20:35 | disposition home or self-care (01) | DRG 641 ==
LOC: SCSER 15:30 → 2NO 16:42
PROVIDERS: ADMIT Student in an Organized Health Care Education/Training Program; ATTEND Student in an Organized Health Care Education/Training Program
DX: E87.1 Hypo-osmolality and hyponatremia (principal); N39.0 Urinary tract infection, site not specified; E78.5 Hyperlipidemia, unspecified; E03.9 Hypothyroidism, unspecified; K21.9 Gastro-esophageal reflux disease without esophagitis; F41.9 Anxiety disorder, unspecified; G47.00 Insomnia, unspecified; K29.70 Gastritis, unspecified, without bleeding; Z66 Do not resuscitate; Z88.2 Allergy status to sulfonamides; Z88.8 Allergy status to other drugs, medicaments and biological substances; Z88.5 Allergy status to narcotic agent; Z79.899 Other long term (current) drug therapy; Z79.82 Long term (current) use of aspirin; Z96.651 Presence of right artificial knee joint
CPT/HCPCS: 36415; 70450; 80048; 80053; 81003; 81015; 82533; 82550; 82553; 83690; 83930; 83935; 84300; 84443; 84484; 85025; 87086; 93005; 96361; 96374; G8978-GP-CM; G8979-GP-CM; G8980-GP-CM; G8987-GO-CI; G8988-GO-CI; G8989-GO-CI; J0360; J0696; J1650; J2405; J7050; Q0162

== ENCOUNTER 2018-03-14 10:38 | Outpatient (CLI) | payer MEDICARE ==
--- NOTE | 2018-03-14 13:52 | ULT ---
BILATERAL RENAL ULTRASOUND: Date: 03/14/18 HISTORY: Right ureteral stone with hydronephrosis on CT scan of 01/07/18. FINDINGS: The right kidney measures 9.1 cm in length and the left kidney measures 9.0 cm in length. No focal ma ss or hydronephrosis is seen on either side. The urinary bladder has a pre-void volume of 233 mL and a post-void residual of 22 mL. Bilateral ureteral jets are noted. IMPRESSION: No evidence of high grade obstruction. POS: OFF
== END 2018-03-14 10:39 | disposition home or self-care (01) ==
LOC: ULT 10:38
PROVIDERS: ATTEND Urology
DX: N13.2 Hydronephrosis with renal and ureteral calculous obstruction (principal)
CPT/HCPCS: 76770